=== PATIENT | female | born 1950 | race Caucasian/White ===

== ENCOUNTER 2018-08-25 17:52 | Emergency (ER) | payer BC ==
[2018-08-25 18:06] VITALS: BP 160/94
[2018-08-25] MEDS ORDERED: traMADol TAB* 50 MG PO ONE (18:15)
--- NOTE | 2018-08-25 18:15 | UC ---
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 and landed on her right hip pain in hip and pelvis unable to WB - History of Current Complaint Chief Complaint: UCLowerExtremity Stated Complaint: HIP AND LEG INJURY Time Seen by Provider: 08/25/18 18:08 Hx Obtained From: Patient ?: No Onset/Duration: Sudden Onset, Lasting Minutes Pain Intensity: 9 Pain Scale Used: 0-10 Numeric Aggravating Factor(s): Standing, Ambulation Alleviating Factor(s): Nothing Able to Bear Weight: No - Allergies/Home Medications Allergies/Adverse Reactions: Allergies Allergy/AdvReac Type Severity Reaction Status Date / Time MS Codeine [Codeine] Allergy Severe Hallucinati Verified 08/25/18 18:03 ons MS Latex [Latex] Allergy Severe SKIN Verified 08/25/18 18:03 REACTION MS Penicillins [Penicillins] Allergy Severe Hives Verified 08/25/18 18:03 OTC ALLERGY NASAL SPRAY Allergy Severe RED, Uncoded 08/25/18 18:03 ITCHING, HIVES PMH/Surg Hx/FS Hx/Imm Hx Previously Healthy: No Cardiovascular History: Hypertension - Surgical History Surgical History: Yes Surgery Procedure, Year, and Place: 2004 CARDIAC STENT(CYPHER DRUG ELUDING STENT -OK TO 720G/CM)INFORMATION SCANNED INTO EMR, PARTIAL THYROIDECTOMY, RIGHT LEG SURGERY FOR OPEN FX, D&C, LASER SURGERY FOR 3 HERNIATED DISCS IN NECK - Family History Known Family History: Positive: Hypertension - Social History Occupation: Retired Lives: With Family Alcohol Use: Daily Alcohol Amount: "cocktails" Substance Use Type: None Smoking Status (MU): Never Smoked Tobacco Have You Smoked in the Last Year: No Review of Systems All Other Systems Reviewed And Are Negative: Yes Constitutional: Positive: Negative Skin: Positive: Negative Eyes: Positive: Negative ENT: Positive: Negative Respiratory: Positive: Negative Cardiovascular: Positive: Negative Gastrointestinal: Positive: Negative Genitourinary: Positive: Negative Motor: Positive: Decreased ROM - right hip Neurovascular: Positive: Negative Musculoskeletal: Positive: Arthralgia - right hip, Decreased ROM - right hip Neurological: Positive: Negative Psychological: Positive: Negative Is Patient Immunocompromised?: No Physical Exam Triage Information Reviewed: Yes Appearance: Well-Appearing, Well-Nourished, Pain Distress Vital Signs: Initial Vital Signs Temp 99.1 F 08/25/18 18:04 Pulse 100 08/25/18 18:04 Resp 16 08/25/18 18:04 BP 160/94 08/25/18 18:04 Pulse Ox 98 08/25/18 18:04 Vital Signs Reviewed: Yes Eye Exam: Normal Eyes: Positive: Conjunctiva Clear ENT Exam: Normal ENT: Positive: Normal ENT inspection, Hearing grossly normal, Pharynx normal. Negative: Trismus, Muffled voice, Hoarse voice Dental Exam: Normal Neck exam: Normal Neck: Positive: Supple, Nontender Respiratory Exam: Normal Respiratory: Positive: Chest non-tender, Lungs clear, Normal breath sounds, No respiratory distress, No accessory muscle use Cardiovascular Exam: Normal Cardiovascular: Positive: RRR, No Murmur, Pulses Normal, Brisk Capillary Refill Musculoskeletal Exam: Other Musculoskeletal: Positive: No Edema, Strength Limited @ - right hip, ROM Limited @ - right hip Neurological Exam: Normal Neurological: Positive: Alert, Muscle Tone Normal Psychological Exam: Normal Skin Exam: Normal Diagnostics - Radiology No standard instances Radiology Interpretation Completed By: ED Physician - right femeral neck fx Lower Extremity Course/Dx - Course Course Of Treatment: ivf zofran morphine to ed for definitive care by ambulance - Differential Dx/Diagnosis Provider Diagnosis: Fracture of right hip - Physician Notifications Time Discussed With Above Provider: 18:55 - Marcellus LUND Discharge - Sign-Out/Discharge Documenting (check all that apply): Post-Discharge Follow Up All imaging exams completed and their final reports reviewed: No - Discharge Plan Condition: Good Disposition: TRANS HIGHER LVL OF CARE FAC Referrals: Avani Garcia MD [Primary Care Provider] - - Billing Disposition and Condition Condition: GOOD Disposition: Trans Higher Lvl of Care Fac
[2018-08-25] MEDS ORDERED: Ondansetron ODT TAB* 4 MG PO ONE (18:25)
[2018-08-25] MEDS ORDERED: Ondansetron INJ* 2 MG/ML VIAL IV ONE (18:46)
[2018-08-25] MEDS ORDERED: Morphine 4 MG/ML VIAL (1 ml) 4 MG/ML VIAL IV ONE (18:46)
[2018-08-25] MEDS ORDERED: NS 0.9% 1000 ML** 1,000 ML IV ONE (18:47)
[2018-08-25] MEDS ORDERED: Morphine 10 MG/ML VIAL (1 ml) IV ONE ×2 (18:49→18:50)
--- NOTE | 2018-08-26 19:31 | UC ---
- Progress Note Progress Note: RADIOLOGY REPORT REVIEWED. CONFIRMS RIGHT FEMORAL NECK FRACTURE. PT SENT TO ER. NO CHANGE IN MGMT. Course/Dx - Diagnoses Provider Diagnoses: Fracture of right hip - Provider Notifications Time Discussed With Above Provider: 18:55 - Marcellus LUND Discharge - Sign-Out/Discharge Documenting (check all that apply): Post-Discharge Follow Up All imaging exams completed and their final reports reviewed: Yes - Discharge Plan Condition: Good Disposition: TRANS HIGHER LVL OF CARE FAC Referrals: Avani Garcia MD [Primary Care Provider] - - Billing Disposition and Condition Condition: GOOD Disposition: Trans Higher Lvl of Care Fac
== END 2018-08-25 19:10 | disposition short-term general hospital (02) ==
LOC: UCEAST 17:52
DX: S72.001A Fracture of unspecified part of neck of right femur, initial encounter for closed fracture (principal); W19.XXXA Unspecified fall, initial encounter; Y92.9 Unspecified place or not applicable; X50.1XXA Overexertion from prolonged static or awkward postures, initial encounter; I10 Essential (primary) hypertension
CPT/HCPCS: 96374; 96375; 99213; A9270-GY; G0463; J2270; J2405

== ENCOUNTER 2018-08-25 19:27 | Inpatient (IN) | payer BC, MEDICARE ==
[2018-08-25] MEDS ORDERED: Bupivacaine 0.5% W/EPI SDV* 10 ML VIAL INJ ONE (19:33)
[2018-08-25] MEDS ORDERED: Lidocaine 2% EPI 1:200000 MPF* 10 ML VIAL INJ ONE (19:33)
--- NOTE | 2018-08-25 19:42 | ED ---
Lower Extremity - HPI Summary HPI Summary: This patient is a 68 year old F brought to ED via EMS from [facility] where they took a right hip XR which revealed a right femoral neck fracture after cleaning her car today at 1515. She slipped and fell on right hip from standing position. She could not get up and was helped up by her . Patient tried ice and Aleve, without improvement. She is unable to bear weight. She does not take blood thinners. The patient rates the pain 8/10 in severity. Symptoms aggravated by nothing. Symptoms alleviated by nothing. Patient reports right hip pain and right elbow abrasion. Patient denies CP, SOB, JOY. PMHx of angina, stent, broken wrist, broken collar bone. PSHx knee replacement, cardiac stent. FHx of HTN. Patient drinks alcohol, does not use tobacco or substances. - History of Current Complaint Stated Complaint: HIP/LEG INJURY, FROM CC PER EMS Time Seen by Provider: 08/25/18 19:33 Hx Obtained From: Patient Mechanism Of Injury: Fall From A Standing Position Onset of Pain: Post Accident Onset/Duration: Hours - Since 1515 today Severity Initially: Severe Severity Currently: Severe Pain Intensity: 8 Pain Scale Used: 0-10 Numeric Timing: Constant Location: Is Discrete @ - Right hip Associated Signs And Symptoms: Positive: Negative Aggravating Factor(s): Nothing Alleviating Factor(s): Nothing Able to Bear Weight: No - Allergies/Home Medications Allergies/Adverse Reactions: Allergies Allergy/AdvReac Type Severity Reaction Status Date / Time Latex, Natural Rubber Allergy Severe Skin Verified 08/25/18 18:55 Reaction Penicillins Allergy Severe Hives Verified 08/25/18 18:55 codeine AdvReac Severe Hallucinati Verified 08/25/18 20:41 ons OTC ALLERGY NASAL SPRAY Allergy Severe RED, Uncoded 08/25/18 18:03 ITCHING, HIVES Home Medications: Home Medications Meloxicam [Mobic] 15 mg PO DAILY PRN 08/25/18 [History Confirmed 08/25/18] PMH/Surg Hx/FS Hx/Imm Hx Endocrine/Hematology History: Denies: Hx Diabetes, Hx Thyroid Disease Cardiovascular History: Reports: Hx Angina, Hx Coronary Artery Disease, Hx Hypercholesterolemia, Hx Hypertension - ON MEDS, Hx Valvular Heart Disease Denies: Hx Myocardial Infarction, Hx Pacemaker/ICD Respiratory History: Denies: Hx Asthma, Hx Chronic Obstructive Pulmonary Disease (COPD) GI History: Denies: Hx Ulcer Musculoskeletal History: Denies: Hx Rheumatoid Arthritis, Hx Osteoporosis Sensory History: Denies: Hx Hearing Aid Neurological History: Denies: Other Neuro Impairments/Disorders - PAIN CLINIC PT Psychiatric History: Denies: Hx Panic Disorder - Cancer History Hx Chemotherapy: No Hx Radiation Therapy: No - Surgical History Surgery Procedure, Year, and Place: 2004 CARDIAC STENT(CYPHER DRUG ELUDING STENT -OK TO 720G/CM)INFORMATION SCANNED INTO EMR, PARTIAL THYROIDECTOMY, RIGHT LEG SURGERY FOR OPEN FX, D&C, LASER SURGERY FOR 3 HERNIATED DISCS IN NECK Infectious Disease History: Denies: Hx Clostridium Difficile, Hx Hepatitis, Hx Human Immunodeficiency Virus (HIV), Hx of Known/Suspected MRSA, Hx Shingles, Hx Tuberculosis, Hx Known/ Suspected VRE, Hx Known/Suspected VRSA, History Other Infectious Disease - Family History Known Family History: Positive: Hypertension - Social History Alcohol Use: Daily Alcohol Amount: "cocktails" Hx Substance Use: No Substance Use Type: Reports: None Hx Tobacco Use: No Smoking Status (MU): Never Smoked Tobacco Have You Smoked in the Last Year: No Review of Systems Negative: Chest Pain Negative: Shortness Of Breath Positive: Arthralgia - Right hip pain Positive: Bruising - Right elbow Negative: Headache All Other Systems Reviewed And Are Negative: Yes Physical Exam - Summary Physical Exam Summary: Appearance:Well-appearing, Well-nourished, lying in bed comfortable Skin:Warm, dry, no obvious rash Eyes:sclera anicteric, no conjunctival pallor ENT:mucous membranes moist Neck:deferred Respiratory:No signs of respiratory distress Cardiovascular:Appears well perfused, pulses are nml Abdomen:deferred Musculoskeletal:pain with motion in right hip, no shortening Neurological:Awakeand alert, mentation is normal, speech is fluent and appropriate Psychiatric:affect is normal, does not appear anxious or depressed Triage Information Reviewed: Yes Vital Signs On Initial Exam: Initial Vitals Temp Pulse Resp BP Pulse Ox 100 F 104 20 166/85 96 08/25/18 19:34 08/25/18 19:34 08/25/18 19:34 08/25/18 19:34 08/25/18 19:34 Vital Signs Reviewed: Yes Procedures - Ultrasound No standard instances Ultrasound: normal - At 1950 performed fascia iliaca block, injected 50/50 mix of 30cc of 0.5% bupivacaine and 2% lidocaine with epinephrine, under US guidance into fascia iliaca. Diagnostics - Laboratory Result Diagrams: 08/26/18 05:54 08/26/18 05:54 Lab Statement: Any lab studies that have been ordered have been reviewed, and results considered in the medical decision making process. - EKG 2017 Cardiac Rate: NL - 99 BPM EKG Rhythm: Sinus Rhythm ST Segment: Normal Summary of EKG Findings: NSR at 99 BPM, P waves, QRS complex, and T waves are within normal limits, T waves and intervals are normal, no ischemic changes. This is a normal EKG. Re-Evaluation - Re-Evaluation First Eval Re-Evaluation Time: 21:12 Comment: Discussed results with patient. [place] [facility] [place] of right hip subcapital fracture. Patient understands and agrees with this plan. Lower Extremity Course/Dx - Course Course Of Treatment: This patient is a 68 year old F brought to ED via EMS from [facility] where they took a right hip XR which revealed a right femoral neck fracture after cleaning her car today at 1515. At 1950 performed fascia iliaca block, injected 50/50 mix of 30cc of 0.5% bupivacaine and 2% lidocaine with epinephrine, under US guidance into fascia iliaca. In the ED course, patient received Tylenol, Maalox Plus, Marcaine with Epi, Cardizem CD, Lidocaine, fluids , morphine, and Percocet. Blood work and obtained. EKG revealed NSR at 99 BPM, P waves, QRS complex, and T waves are within normal limits, T waves and intervals are normal, no ischemic changes. This is a normal EKG. I consulted with Dr. Au, orthopedic surgeon, who recommended the [place] be [place] [facility] I consulted with Dr. Calabrese who accepted the patient [place] [facility] Patient will be admitted with dx of right-side subcapital hip fracture. Patient understands and agrees with this plan. - Diagnoses Provider Diagnoses: Subcapital fracture of right hip - Physician Notifications Discussed Care Of Patient With: Rosa Au Time Discussed With Above Provider: 20:16 Instructed by Provider To: Other - Discussed patient case with Dr. Au, orthopedic surgeon, who recommended the patient be admitted. Discussed patient case with Dr. Calabrese at 2019 who accepted the patient for admission [place] [facility] Discharge - Sign-Out/Discharge Documenting (check all that apply): Patient Departure Patient Received Moderate/Deep Sedation with Procedure: No - Discharge Plan Condition: Stable Disposition: ADMITTED TO [facility] - Billing Disposition and Condition Condition: STABLE Disposition: Admitted to [facility] - Attestation Statements Document Initiated by Johnna: Yes Documenting Scribe: Shoaib Moseley Provider For Whom Johnna is Documenting (Include Credential): Jackson Carrera MD Scribe Attestation: IShoaib, scribed for Jackson Carrera MD on 08/27/18 at 0118. Scribe Documentation Reviewed: Yes Provider Attestation: The documentation as recorded by the Shoaib torrez accurately reflects the service I personally performed and the decisions made by me, Jackson Carrera MD Status of Scribe Document: Viewed
[2018-08-25] MEDS ORDERED: NS 0.9% 1000 ML** 1,000 ML IV ONE (20:10)
[2018-08-25] MEDS: Morphine 4 MG/ML VIAL (1 ml) 4 MG/ML VIAL IV PRN ×2 (20:45→22:36)
[2018-08-25 20:51] LABS: ABS Basophils 0.1 10^3/ul (0-0.2); ABS Eosinophils 0.1 10^3/ul (0-0.6); ABS Lymphocytes 1.3 10^3/ul (1.0-4.8); ABS Monocytes 0.6 10^3/ul (0-0.8); ABS Neutrophils 7.9 10^3/ul (1.5-7.7); Eosinophil % 0.6 %; Hematocrit 38 % (35-47); Hemoglobin 12.8 g/dL (12.0-16.0); Lymphocyte % 12.8 %; Mean Corpuscular HGB Conc 33 g/dL (31-36); Mean Corpuscular Hemoglobin 31 pg (27-31); Mean Corpuscular Volume 93 fL (80-97); Mean Platelet Volume 7.4 fL (7.4-10.4); Platelet Count 303 10^3/uL (150-450); Red Blood Count 4.12 10^6 /uL (3.70-4.87); Red Cell Distribution Width 15 % (10.5-15); White Blood Count 9.9 10^3/uL (3.5-10.8)
[2018-08-25 20:58] LABS: INR 1.03 (0.82-1.09)
[2018-08-25] MEDS ORDERED: Morphine 4 MG/ML VIAL (1 ml) 4 MG/ML VIAL IV SCH (21:00)
[2018-08-25 21:08] LABS: Albumin 4.4 g/dL (3.2-5.2); BUN/Creatinine Ratio 33.3 (8-20); Calcium 9.1 mg/dL (8.6-10.3); EGFR African American 136.3 (>60); EGFR Non-African American 112.6 (>60); Globulin 2.2 g/dL (2-4); Potassium 3.9 mmol/L (3.5-5.0); Total Bilirubin 0.6 mg/dL (0.2-1.0); Total Protein 6.6 g/dL (6.4-8.9)
[2018-08-25] MEDS ORDERED: Al Hydrox/Mg Hydrox/Simet LIQ* 30 ML UDC PO PRN (21:34)
[2018-08-25] MEDS ORDERED: NS 0.9% 1000 ML** 1,000 ML IV SCH (21:45)
[2018-08-25] MEDS ORDERED: Heparin VIAL(*) 5000 UNITS/ML VIAL (FIVE THOUSAND) SUBCUT SCH (22:00)
[2018-08-25] MEDS ORDERED: Buffered Lidocaine 1% SYRIN* 1 ML/SYRINGE INTRADERM ONE (22:14)
--- NOTE | 2018-08-25 23:04 | CONS ---
CC: Rosa Au MD * CONSULTATION NOTE: DATE OF CONSULTATION: 08/25/18 CHIEF COMPLAINT: Right hip pain. HISTORY OF PRESENT ILLNESS: Stefania is a 68-year-old woman who was cleaning out her car. She fell when she slipped and landed on her right hip. She went to the [facility], had some x-rays, then was brought to the emergency department because she was noted to have a hip fracture. X-rays show a displaced femoral neck fracture. PAST MEDICAL HISTORY: Significant for cardiac disease with a stent placed in 2004 and hypertension. She sees Dr. Saunders every 6 months. She was due to see him in a few days. PHYSICAL EXAM: On physical exam, she is a healthy appearing, very pleasant woman in moderate distress at rest. She has pain with any attempted range of motion of her right hip. She has a palpable posterior tibialis pulse. Her foot is well perfused. Her calf is nontender. Her neurovascular function is intact in the right lower extremity. IMAGING: X-ray: AP, lateral of the right hip and AP pelvis show a displaced fracture of the femoral neck. IMPRESSION: Right hip displaced femoral neck fracture. PLAN: Plan is for a hemiarthroplasty. The patient will be admitted to the hospitalist service and have surgery as soon as possible. [id number]/[facility] #: [id number] [facility]
[2018-08-25] MEDS: oxyCODONE/Acetamin 5/325 MG* TAB PO PRN (23:48)
--- NOTE | 2018-08-26 00:59 | HP ---
CC: Dr. Au; Dr. Saunders; Dr. Garcia * HISTORY AND PHYSICAL: DATE OF ADMISSION: 08/25/18 PRIMARY CARE PROVIDER: Dr. Garcia. POWDER EXPERT: Dr. Saunders. ORTHOPEDIC SURGERY: Dr. Au. CHIEF COMPLAINT: Status post fall, right hip pain. HISTORY OF PRESENT ILLNESS: Stefania Gonzalez is a 68-year-old female with history of hypertension and carotid disease, status post stenting in 2004, who presented to the hospital after a fall today. The patient stated that she was vacuuming the interior of her car and she was in the back of the car, reaching down for her vacuum strainer cleaner when she slipped out of her shoes that she was wearing, falling on the right side of her hip and the right elbow. She denies losing consciousness. She had been in her usual state of health before it happened. When she presented to the ED, she was noted to have right hip fracture. Dr. Carrera from the emergency department notified Dr. Au, the orthopedic surgeon, and Medicine is going to admit. Of note, the patient stated that when she had her surgery for her right knee at [facility] in [facility] in March 2018, she underwent extensive cardiac evaluation that included a cardiac stress test, which was as per the patient negative and subsequently she underwent right knee surgery. PAST MEDICAL HISTORY: 1. History of carotid disease, status post stent placement x1 in 2004. 2. History of hypertension. 3. History of dyslipidemia. 4. History of minimally invasive lower back surgery in October 2016. 5. History of right knee surgery on 04/16/18 at [facility] in [facility]. 6. History of left wrist ORIF in the past. 7. History of collarbone clavicular fracture on the right in the past. CURRENT MEDICATIONS: 1. Meloxicam 50 mg daily p.r.n. 2. Lipitor 40 mg a day. 3. Nitroglycerin on a p.r.n. basis. 4. Avapro 150 mg daily. 5. Diltiazem CD 360 mg daily. 6. Vitamin D3 at 1000 units daily. ALLERGIES: Include LATEX, NATURAL RUBBER, PENICILLIN, and CODEINE. FAMILY HISTORY: Positive for father who of complications of lung cancer in his 80s and mother who of complications of CHF in her 70s. 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 She drinks 2 to 3 glasses of wine a day. Denies any tobacco use or drug use. Her surrogate is her , Fransico. REVIEW OF SYSTEMS: Please see history of present illness. All the remaining 12 systems reviewed with the patient and were, otherwise, negative. PHYSICAL EXAMINATION GENERAL: The patient is a pleasant 68-year-old female who is in no acute distress. Alert, awake, and oriented x3. VITAL SIGNS: Blood pressure of 166/85, heart rate of 104 and regular, respiratory rate 20, oxygen saturation 96% on room air, temperature of 100. HEENT: Head: Atraumatic, normocephalic. Eyes: Pupils are equal, reactive to light and accommodation. Oropharynx clear. Mucosa moist. NECK: Supple. No JVD. No bruits bilaterally. RESPIRATORY: Clear to auscultation bilaterally. CARDIOVASCULAR: Regular rate and rhythm. No murmur. ABDOMEN: Soft, nontender. Bowel sounds are present in all 4 quadrants. EXTREMITIES: There is no edema. Pulses are 2+ bilaterally. There is no clubbing or cyanosis. The right hip is externally rotated and the extremity appears slightly shortened. SKIN: On evaluation of the skin, the patient has an abrasion and small ecchymotic area on the right elbow. No other abnormalities noted. NEURO EVALUATION: Cranial nerves II through XII grossly intact. Motor strength is 5/5 bilaterally. EXTREMITIES: The right hip mobility was not evaluated due to known fracture. DIAGNOSTIC STUDIES/LAB DATA: Laboratory data and studies performed during the hospital stay include: White blood cell count of 9.9, hemoglobin 12.8, hematocrit of 38, and platelets of 303. Sodium was 138, potassium 3.9, chloride 108, carbon dioxide 23, BUN 18, creatinine 0.54. Liver functions unremarkable. Troponin of 0. INR was 1.03. The patient's EKG showed normal sinus tachycardia with heart rate of 99 beats per minute with nonspecific ST changes in leads V4 and V6 and flattening of T waves in both leads. Comparing with an EKG from June 2017, nonspecific new changes were noted. I just accessed the cardiac evaluation of this patient from 04/04/18 from [facility] of Dr. Jaylen Girard, floor runner, who noted that the patient had an echocardiogram at that time of evaluation without regional wall motion abnormalities or LVH and positive for abnormal LV relaxation and no significant valve dysfunction. I do not see a stress test during this valuation, but she was noted to have a nuclear stress test in September 2016, which showed no fixed or reversible perfusion defects, normal wall motion, and EF of 67% at that point. The patient's right hip's x-ray was read by the ER physician as positive for fracture. Unfortunately, I do not have an official report yet available. I was trying to view that x-ray myself and the quality is very poor. It is difficult for me to evaluate this hip x-ray. ASSESSMENT AND PLAN: 1. A 68-year-old female with history of hypertension and coronary artery disease who recently was cleared for an arthroscopic knee surgery in March 2018 and who presents today status post mechanical fall with a right hip fracture. At this point, due to her recent cardiac evaluation in March 2018 with recent echocardiogram that was unremarkable, I do not believe she needs another cardiac evaluation and another echocardiogram. Her troponin is negative. She has not had any chest pain or shortness of breath for the past several years and she has good exercise tolerance. She is an acceptable candidate for the anticipated procedure in the morning. 2. In regards to the patient's hypertension, her irbesartan should be stopped for the time being and she can take her Cardizem with sips of water. She should continue aspirin perioperatively. 3. For DVT prophylaxis, the patient is going to receive a dose of heparin tonight, then it is going to be held, and SCDs are going to be instituted. Postoperatively, DVT prophylaxis is going to be up to orthopedic surgery. 4. The patient's code status is full and her surrogate is her . The case was also discussed with Dr. Au, who is going to be evaluating this patient today. TIME SPENT: Approximately 75 minutes were spent in the admission of this patient; more than half the time was spent [id number] with the patient during the interview and physical exam. [id number]/[facility] #: [id number] JAYDEN
[2018-08-26] MEDS: Morphine INJ* 2 MG/ML 1 ML SYRINGE (TWO MG - NEW SYRINGE VERSION) IV PRN ×4 (02:20→14:44)
[2018-08-26] MEDS: oxyCODONE/Acetamin 5/325 MG* TAB PO PRN ×4 (04:32→22:22)
[2018-08-26] MEDS: Lactated Ringers 1000 ML Bag* 1,000 ML IV SCH ×2 (05:55→21:26)
[2018-08-26 06:06] LABS: ABS Eosinophils 0.1 10^3/ul (0-0.6); ABS Monocytes 0.4 10^3/ul (0-0.8); ABS Neutrophils 4.4 10^3/ul (1.5-7.7); Eosinophil % 1.3 %; Hematocrit 34 % (35-47); Hemoglobin 11.3 g/dL (12.0-16.0); Lymphocyte % 17.3 %; Mean Corpuscular HGB Conc 34 g/dL (31-36); Mean Corpuscular Hemoglobin 31 pg (27-31); Mean Corpuscular Volume 94 fL (80-97); Mean Platelet Volume 7.3 fL (7.4-10.4); Platelet Count 264 10^3/uL (150-450); Red Blood Count 3.62 10^6 /uL (3.70-4.87); Red Cell Distribution Width 15 % (10.5-15)
[2018-08-26 06:22] LABS: BUN/Creatinine Ratio 30.2 (8-20); Calcium 8.6 mg/dL (8.6-10.3); EGFR African American 177.2 (>60); EGFR Non-African American 146.5 (>60); Potassium 4.1 mmol/L (3.5-5.0)
[2018-08-26] MEDS ORDERED: Lidocaine 2% MPF* 2 ML VIAL ONE (08:11)
[2018-08-26] MEDS ORDERED: Bupivacaine 0.5% SDV PF* 30ML VIAL ONE (08:11)
[2018-08-26] MEDS: Diltiazem CD CAP* 180 MG PO SCH (08:27)
[2018-08-26] MEDS ORDERED: Buffered Lidocaine 1% SYRIN* 1 ML/SYRINGE INTRADERM ONE (08:39)
[2018-08-26] MEDS ORDERED: fentaNYL* 50 MCG/ML 2 ML VIAL (100 MCG VIAL) ONE (09:11)
[2018-08-26] MEDS ORDERED: KETAMINE HCL* 50 MG/ML 10 ML VIAL ONE ×2 (09:11→16:25)
[2018-08-26] MEDS ORDERED: Lidocaine 2% PF * 5 ML VIAL ONE ×2 (09:11→16:25)
[2018-08-26] MEDS ORDERED: Midazolam* 1 MG/ML 2 ML VIAL (2 MG) ONE (09:11)
[2018-08-26] MEDS ORDERED: Propofol* 10 MG/ML 20 ML BTL ONE ×2 (09:12→16:25)
[2018-08-26] MEDS ORDERED: Propofol* 10 MG/ML 50 ML BTL ONE ×2 (09:12→16:25)
--- NOTE | 2018-08-26 10:04 | PN ---
Progress Note - Progress Note Date of Service: 08/26/18
--- NOTE | 2018-08-26 10:15 | PN ---
Progress Note - Progress Note Date of Service: 08/26/18 SOAP: Subjective: Patient fell yesterday around 3pm. See Dr. Au consult note for details. Patient is in pain about the R groin and lateral hip area. Also mentions some pain in the right knee. Prior history R TKA Objective: - NAD - Pain with any PROM R hip - Soft tissue swelling R hip - R knee incision scar anterior from TKA - R knee effusion - NVID Selected Entries 08/26/18 07:32 Temperature 97.7 F Pulse Rate 73 Respiratory 18 Rate Blood Pressure 124/62 (mmHg) O2 Sat by Pulse 98 Oximetry Laboratory Tests 08/25/18 08/25/18 08/26/18 20:43 20:43 05:54 WBC 6.0 Hct 38 34 L INR (Anticoag Therapy) 1.03 Xrays: displaced R femoral neck fracture Assessment: HD 2 R hip displaced femoral neck fracture Plan: - Discussed hip fracture anatomy and treatment with the patient and her - Patient was originally scheduled for hip hemiarthroplasty by me this morning - While hemiarthroplasty would be an appropriate surgical treatment for this hip fracture, I think that, given the patient's relatively young age, high activity level, and lack of prior assist device usage, she is more appropriate for a total hip arthroplasty. - I therefore contacted a partner who is higher volume of total hip arthroplasty , Dr. Pryor. She will do the case at 5pm this afternoon. - NPO continue - Patient has been optimized/cleared by medicine, Dr. Calabrese - Patient should have knee x-rays obtained at some point. To minimize discomfort , we can hold off until postop along with hip xrays in PACU
--- NOTE | 2018-08-26 14:46 | PN ---
Subjective Date of Service: 08/26/18 Interval History: Patient seen and examined. Mildly delirious after having morphine for pain, but otherwise appropriate. States pain is well controlled, denies SOB, no chest pain , no n/v. Remains NPO for procedure this evening. Objective Active Medications: Acetaminophen (Tylenol Tab*) 650 mg PO Q4H PRN PRN Reason: FEVER/PAIN Al Hydrox/Mg Hydrox/Simethicone (Maalox Plus*) 30 ml PO Q6H PRN PRN Reason: INDIGESTION Aspirin (Aspirin 81 Mg Chew Tab*) 81 mg PO DAILY [facility] Diltiazem HCl (Cardizem Cd Cap*) 360 mg PO DAILY [facility] Last Admin: 08/26/18 08:27 Dose: 360 mg Lactated Ringer's (Lactated Ringers 1000 Ml Bag*) 1,000 mls @ 125 mls/hr IV PER RATE [facility] Last Admin: 08/26/18 05:55 Dose: 125 mls/hr Morphine Sulfate (Morphine Inj (Syringe))*) 2 mg IV Q4H PRN PRN Reason: PAIN - MILD Last Admin: 08/26/18 10:21 Dose: 2 mg Oxycodone/Acetaminophen (Percocet 5/325 Tab*) 1 tab PO Q4H PRN PRN Reason: Pain Last Admin: 08/26/18 12:38 Dose: 1 tab Vital Signs - 8 hr 08/26/18 08/26/18 08/26/18 07:32 08:00 08:27 Temperature 97.7 F Pulse Rate 73 Respiratory 18 18 18 Rate Blood Pressure 124/62 (mmHg) O2 Sat by Pulse 98 Oximetry 08/26/18 08/26/18 08/26/18 10:21 11:40 12:38 Temperature 98.8 F Pulse Rate 80 Respiratory 18 16 18 Rate Blood Pressure 128/64 (mmHg) O2 Sat by Pulse 95 Oximetry Oxygen Devices in Use Now: None Appearance: Alert, NAD Eyes: No Scleral Icterus, PERRLA Ears/Nose/Mouth/Throat: NL Teeth, Lips, Gums, Mucous Membranes Moist Neck: NL Appearance and Movements; NL JVP, Trachea Midline Respiratory: Symmetrical Chest Expansion and Respiratory Effort, Clear to Auscultation Cardiovascular: RRR, No Edema Abdominal: NL Sounds; No Tenderness; No Distention Extremities: No Edema, No Clubbing, Cyanosis, - - tender over right hip Neurological: NL Sensation, - - A&Ox2 Nutrition: - - NPO Result Diagrams: 08/26/18 05:54 08/26/18 05:54 Diagnostic Imaging: Patient Name: TEODORA RIVERA Medical Record#: [id number] Ordering Physician: Jackson Carrera MD Acct.#: [id number] : 1950 Age: 68 Sex: F Location: SURGICAL STAY UNIT Exam Date: 08/25/182132 ADM Status: ADM IN Order Information: HIP RIGHT 1 VW Accession Number: [id number] CPT: 35638 INDICATION: Suspected right hip fracture. A lateral view is required. COMPARISON: Same day radiograph acquired at 1836 hours depicting a right femoral neck fracture TECHNIQUE: A total of 6 lateral views of the right hip were obtained. FINDINGS: The radiographic images acquired at 2200 hours demonstrate a minimally displaced right femoral neck fracture in the lateral view. IMPRESSION: Minimally displaced fractured right femoral neck. R1F Preliminary Imaging Read R1F <Electronically signed by Gonzalo Adams MD in OV> 08/26/18934 Dictated By: Gonzalo Adams MD Dictated Date/Time: 08/26/18934 Transcribed Date/Time: 08/26/18932 Copy to: Assess/Plan/Problems-Billing Assessment: This is a 68 year old female with history of CAD and HTN that presented to the ED with complaints of right hip pain after mechanical fall, admitted for right hip fracture. - Patient Problems (1) Displaced fracture of right femoral neck Code(s): S72.001A - FRACTURE OF UNSP PART OF NECK OF RIGHT FEMUR, INIT SNOMED Code(s): 2943753 Comment: - Original plan for hemiarthroplasty, however, surgery was cancelled. Dr. Pryor will come in this evening to perform a right total hip arthroplasty instead - Continue pain control, watch for delerium - Bowel regimen, DVT prophy per ortho - Plan per ortho (2) CAD (coronary artery disease) Code(s): I25.10 - ATHSCL HEART DISEASE OF [place] CORONARY ARTERY W/O ANG PCTRS SNOMED Code(s): 84686792 Comment: - History of CAD with stents - Recents ECHO and EKG with no changes - Continue home statin, ASA (3) Hypertension Code(s): I10 - ESSENTIAL (PRIMARY) HYPERTENSION SNOMED Code(s): 27904071 Comment: - Continue cardizem, BP stable Status and Disposition: Inpatient. Surgery tonight.
[2018-08-26] MEDS ORDERED: Scopolamine 1.5 mg* PATCH ONE (16:25)
[2018-08-26] MEDS ORDERED: Clindamycin 900 MG IVPREMIX(* 900 MG/50 ML SDV IV ONE (16:53)
[2018-08-26] MEDS ORDERED: Dexamethasone IV* 4 MG/ML 1 ML (4 MG) ONE (17:41)
[2018-08-26] MEDS ORDERED: Bupivacaine 0.25% SDV PF* 10 ML VIAL INJ ONE (18:38)
[2018-08-26] MEDS ORDERED: HYDROmorphone INJ1* 1 MG/ML SYRINGE IV PRN (18:41)
[2018-08-26] MEDS ORDERED: Ondansetron INJ* 2 MG/ML VIAL IV PRN (18:41)
[2018-08-26] MEDS ORDERED: Naloxone* 0.4 MG/ML 1 ML VIAL IV PRN (18:41)
[2018-08-26] MEDS ORDERED: Ketorolac INJ* 30 MG/ML 1 ML VIAL IV PRN (18:41)
[2018-08-26] MEDS ORDERED: oxyCODONE TAB* 5 MG TAB PO PRN (18:41)
[2018-08-26] MEDS ORDERED: Acetaminophen IV 1GM/100ML * 1,000 MG/100 ML VIAL IVPB ONE (18:41)
--- NOTE | 2018-08-26 19:01 | PN ---
Progress Note - Progress Note Date of Service: 08/26/18 SOAP: TEODORA RIVERA 1950 Date Of Surgery: 08/26/18 Fatemeh Keller MD Assurance Senior Manager Insurance: Adenike LUND did help throughout the procedure with preparation of the hip, wound retraction, manipulation of the hip, and wound closure. Anesthesiologist: Jada Malave MD Anesthesia Type: Spinal Preoperative Diagnosis: Right displaced femoral neck fracture Postoperative Diagnosis: As above Procedure Performed: Right Total Hip Arthroplasty Complications: None Specimen: Femoral head and acetabular reamings sent to pathology. Hardware used: This is uncemented [place] total hip arthroplasty hardware for the femur a size 4 accolade II with 127 degree neck femoral component, for the acetabulum a size 50 D trident II tritanium cluster hole shell with one 15 mm screw, for the insert a size 38 D MDM cementless liner insert, and for the femoral head a size 22.2 + 0 LFIT V40 femoral head with a MDM X 3 insert 22.2/ 38/38D. Brief history/Indication: TEODORA RIVERA had a fall on 08/25/18, fracturing her right femoral neck. The fracture was displaced and her hip joint showed significant osteoarthritis. 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 The patient was offered a total hip arthroplasty as the best orthopedic medical recommendation and did wish to proceed. Informed consent was obtained from the patient. She understood the risks of surgery included but were not limited to: bleeding, infection, damage to nearby structures, intraoperative fracture, nerve palsy, failure of the hardware, early loosening, stiffness or loss of motion, dislocation, leg length discrepancy, anesthesia complications, stroke, heart attack, blood clot and . She wished to proceed. Intra-Operative findings: Intraoperatively the patient was noted to have severe loss of cartilage of the acetabulum and femoral head. She had a comminuted displaced femoral neck fracture. She had significant osteopenia. Description of the Procedure: TEODORA RIVERA was identified in the preanesthesia unit. Her right hip was marked as the correct operative side. Informed consent was signed and placed in the chart. The patient was taken to the operating room and placed under anesthesia without complication. A giraldo catheter was placed. The patient was placed on the peg board with all bony prominences well padded. The right lower extremity was prepped and draped in the usual sterile fashion. Preoperative time -out was made to correctly identify the patient, side and site. Appropriate intraoperative antibiotics were given within one hour of incision. A standard posterior incision was made and carried sharply down to the lateral fascia. A new 10 blade was used to make an incision in the fascia in line with the skin incision. A charnley retractor was placed. The piriformis and conjoined tendons were identified and elevated off the posterolateral femur using electrocautery. These were tagged with number 5 Ethibond. Next electrocautery was used to make a posterolateral capsular flap and this was tagged with number 5 Ethibonds. The hip was carefully dislocated. The femoral neck fracture was comminuted Lesser trochanter to the center of the femoral head was estimated at 55 mm. The oscillating saw was used to make the femoral neck clean-up cut. The femoral head was carefully removed, along with any bony fragments. The femur was retracted anteriorly and the acetabular retractors were placed. Long-handled knife was used to sharply remove any remaining labrum from the acetabular rim. The acetabulum was sequentially reamed up to a size 49. A bleeding subchondral bone bed was obtained. A trial cup was placed and had excellent fit and stability. A 50 D trident II tritanium cup was placed and had excellent stability with appropriate anteversion and abduction angle. A 15 mm screw was placed for extra stability. A size 38D MDM cementless liner was impacted into the acetabular shell. The liner was checked for stability and was stable. Next attention was turned to preparation of the femoral canal. A canal finder was used to enter the proximal femur. The femoral canal was sequentially broached up to a size 4 femoral broach trial. A trial neck and 22.2+0/38D trial femoral head was chosen. Lesser trochanter to center of the femoral head measurement was satisfactory. The hip was reduced and taken through a range of motion. The hip was stable in all positions with good soft tissue tension and appropriate leg lengths. The hip was dislocated and all trials were removed. The final implant chosen was a size 4 accolade II with 127 degree neck. This stem was impacted into the femoral canal without difficulty. The stem was stable with appropriate anteversion. The femoral head chosen was a 22.2 + 0 with 22.2/38D MDM X3 insert. The head was impacted onto the femoral neck without difficulty. The final lesser trochanter to center of the femoral head measurement was satisfactory. The hip was reduced and taken through a range of motion. The hip was stable in all positions with good soft tissue tension and appropriate leg lengths. The hip was copiously irrigated with sterile saline. The previously tagged capsule and tendons were repaired to the posterolateral femur through two trochanteric drill holes. The lateral fascia layer was closed using number 1 vicryls. The rest of the incision was closed in a layered fashion using 0 and 2-0 vicryls. The skin was closed using 3-0 monocryl suture and Dermabond. Sterile adaptic, 4x4s and paper tape was used to cover the incision. The patients anesthesia was reversed without difficulty. She was taken to the PACU in stable condition. Intended weight-bearing will be as tolerated with posterior hip precautions.
[2018-08-26] MEDS ORDERED: Acetaminophen IV 1GM/100ML * 100 ML ONE (19:29)
[2018-08-26] MEDS ORDERED: Ketorolac INJ* 30 MG/ML 1 ML VIAL ONE (19:29)
[2018-08-26] MEDS ORDERED: oxyCODONE/Acetamin 5/325 MG* TAB PO PRN (23:52)
[2018-08-27] MEDS: Morphine INJ* 2 MG/ML 1 ML SYRINGE (TWO MG - NEW SYRINGE VERSION) IV PRN (00:48)
[2018-08-27] MEDS: Clindamycin 600 MG/D5W BAG(*) 600 MG/50 ML BAG IV SCH ×3 (00:49→17:27)
[2018-08-27] MEDS: oxyCODONE/Acetamin 5/325 MG* TAB PO PRN ×4 (02:40→17:28)
[2018-08-27] MEDS: oxyCODONE TAB* 5 MG TAB PO PRN ×3 (04:37→21:19)
[2018-08-27] MEDS: Lactated Ringers 1000 ML Bag* 1,000 ML IV SCH (06:05)
[2018-08-27] MEDS: Diltiazem CD CAP* 180 MG PO SCH (08:42)
[2018-08-27] MEDS: Aspirin 81 mg CHEW TAB* 81 MG TAB.CHEW PO SCH (08:43)
[2018-08-27] MEDS: Apixaban* 2.5 MG TAB PO SCH ×2 (08:43→21:20)
[2018-08-27] MEDS ORDERED: Magnesium Hydroxide LIQ* 30 ML UDC PO PRN (10:15)
[2018-08-27] MEDS ORDERED: Senna TAB PO PRN (10:15)
[2018-08-27] MEDS ORDERED: Polyethylene Glycol 3350* 17 GM PACKET PO PRN (10:15)
--- NOTE | 2018-08-27 10:18 | PN ---
Progress Note - Progress Note Date of Service: 08/27/18 SOAP: Subjective: []Patient seen and examined at bedside. She is POD 1 sp right total hip arthroplasty following a femoral neck fracture. She denies chest pain, shortness of breath, dizziness, nausea. Objective: []General: Appears well, NAD RLE: Dressing CDI, thigh soft, DF/PF intact, DP2+, sensation intact to light touch distally Calves supple and nontender without erythema, edema or palpable cords Assessment: []POD 1 sp right total hip arthroplasty following right femoral neck fracture Plan: []WBAT, posterior hip precautions. Posterior hip precautions reviewed with patient PT/OT eliquis 2.5 mg po BID Anticipate DC home tomorrow Vital Signs Temp 98 F 08/27/18 07:32 Pulse 85 08/27/18 07:32 Resp 18 08/27/18 10:40 BP 120/76 08/27/18 07:32 Pulse Ox 96 08/27/18 07:32 Intake & Output 08/26/18 08/27/18 08/27/18 18:59 06:59 18:59 Intake Total 1270 2490 1040 Output Total 202 650 Balance 1270 465 390 Weight 150 lb Intake: IV Fluids 1030 1050 CLINDAMYCIN 900MG IN 50 50MLNS LR 980 1050 Oral 240 1440 1040 Output: Urine 650 Yates 2024 Other: Estimated Void Large Laboratory Last Values WBC 6.0 10^3/uL (3.5-10.8) 08/26/18 05:54 RBC 3.62 10^6 /uL (3.70-4.87) L 08/26/18 05:54 Hgb 11.3 g/dL (12.0-16.0) L 08/26/18 05:54 Hct 34 % (35-47) L 08/26/18 05:54 MCV 94 fL (80-97) 08/26/18 05:54 MCH 31 pg (27-31) 08/26/18 05:54 MCHC 34 g/dL (31-36) 08/26/18 05:54 RDW 15 % (10.5-15) 08/26/18 05:54 Plt Count 264 10^3/uL (150-450) 08/26/18 05:54 MPV 7.3 fL (7.4-10.4) L 08/26/18 05:54 Neut % (Auto) 73.2 % 08/26/18 05:54 Lymph % (Auto) 17.3 % 08/26/18 05:54 [place] % (Auto) 7.4 % 08/26/18 05:54 Eos % (Auto) 1.3 % 08/26/18 05:54 Baso % (Auto) 0.8 % 08/26/18 05:54 Absolute Neuts (auto) 4.4 10^3/ul (1.5-7.7) 08/26/18 05:54 Absolute Lymphs (auto) 1.0 10^3/ul (1.0-4.8) 08/26/18 05:54 Absolute Monos (auto) 0.4 10^3/ul (0-0.8) 08/26/18 05:54 Absolute Eos (auto) 0.1 10^3/ul (0-0.6) 08/26/18 05:54 Absolute Basos (auto) 0.0 10^3/ul (0-0.2) 08/26/18 05:54 Absolute Nucleated RBC 0.0 10^3/ul 08/26/18 05:54 Nucleated RBC % 0.0 08/26/18 05:54 INR (Anticoag Therapy) 1.03 (0.82-1.09) 08/25/18 20:43 Sodium 135 mmol/L (135-145) 08/26/18 05:54 Potassium 4.1 mmol/L (3.5-5.0) 08/26/18 05:54 Chloride 104 mmol/L (101-111) 08/26/18 05:54 Carbon Dioxide 26 mmol/L (22-32) 08/26/18 05:54 Anion Gap 5 mmol/L (2-11) 08/26/18 05:54 BUN 13 mg/dL (6-24) 08/26/18 05:54 Creatinine 0.43 mg/dL (0.51-0.95) L 08/26/18 05:54 Est GFR ( Amer) 177.2 (>60) 08/26/18 05:54 Est GFR (Non-Af Amer) 146.5 (>60) 08/26/18 05:54 BUN/Creatinine Ratio 30.2 (8-20) H 08/26/18 05:54 Glucose 132 mg/dL (70-100) H 08/26/18 05:54 Calcium 8.6 mg/dL (8.6-10.3) 08/26/18 05:54 Total Bilirubin 0.60 mg/dL (0.2-1.0) 08/25/18 20:43 AST 18 U/L (13-39) 08/25/18 20:43 ALT 21 U/L (7-52) 08/25/18 20:43 Alkaline Phosphatase 67 U/L (34-104) 08/25/18 20:43 Troponin I 0.00 ng/mL (<0.04) 08/25/18 20:43 Total Protein 6.6 g/dL (6.4-8.9) 08/25/18 20:43 Albumin 4.4 g/dL (3.2-5.2) 08/25/18 20:43 Globulin 2.2 g/dL (2-4) 08/25/18 20:43 Albumin/Globulin Ratio 2.0 (1-3) 08/25/18 20:43 Blood Type B Positive 08/25/18 20:43 Antibody Screen Negative 08/25/18 20:43
--- NOTE | 2018-08-27 17:10 | PN ---
Subjective Date of Service: 08/27/18 Interval History: Patient seen and examined. Feeling well. States she has tenderness over the right groin, has been participating in PT. Denies SOB, no chest pain, no further complaints. Objective Active Medications: Acetaminophen (Tylenol Tab*) 650 mg PO Q4H PRN PRN Reason: FEVER/PAIN Al Hydrox/Mg Hydrox/Simethicone (Maalox Plus*) 30 ml PO Q6H PRN PRN Reason: INDIGESTION Apixaban (Eliquis*) 2.5 mg PO BID [facility] Last Admin: 08/27/18 08:43 Dose: 2.5 mg Aspirin (Aspirin 81 Mg Chew Tab*) 81 mg PO DAILY [facility] Last Admin: 08/27/18 08:43 Dose: 81 mg Diltiazem HCl (Cardizem Cd Cap*) 360 mg PO DAILY [facility] Last Admin: 08/27/18 08:42 Dose: 360 mg Docusate Sodium (Colace Cap*) 100 mg PO BID [facility] Lactated Ringer's (Lactated Ringers 1000 Ml Bag*) 1,000 mls @ 125 mls/hr IV PER RATE [facility] Last Admin: 08/27/18 06:05 Dose: 125 mls/hr Clindamycin HCl/Dextrose (Cleocin 600 Mg/50 Ml(*)) 600 mg in 50 mls @ 100 mls/ hr IV Q8H [facility] Stop: 08/27/18 17:59 Last Admin: 08/27/18 08:42 Dose: 100 mls/hr Magnesium Hydroxide (Milk Of Magnesia Liq*) 30 ml PO BID PRN PRN Reason: CONSTIPATION Morphine Sulfate (Morphine Inj (Syringe))*) 2 mg IV Q4H PRN PRN Reason: PAIN - MILD Last Admin: 08/27/18 00:48 Dose: 2 mg Oxycodone HCl (Roxycodone Tab*) 5 mg PO Q6H PRN PRN Reason: PAIN Last Admin: 08/27/18 10:40 Dose: 5 mg Oxycodone/Acetaminophen (Percocet 5/325 Tab*) 1 tab PO Q4H PRN PRN Reason: PAIN - MILD TO MODERATE Oxycodone/Acetaminophen (Percocet 5/325 Tab*) 2 tab PO Q4H PRN PRN Reason: PAIN - MODERATE TO SEVERE Last Admin: 08/27/18 13:08 Dose: 2 tab Polyethylene Glycol/Electrolytes (Miralax*) 17 gm PO DAILY PRN PRN Reason: CONSTIPATION Senna (Senokot Tab*) 1 tab PO BEDTIME PRN PRN Reason: CONSTIPATION Vital Signs - 8 hr 08/27/18 08/27/18 08/27/18 10:40 12:46 13:08 Temperature 98 F Pulse Rate 74 Respiratory 18 16 16 Rate Blood Pressure 121/62 (mmHg) O2 Sat by Pulse 97 Oximetry 08/27/18 08/27/18 15:28 16:16 Temperature 98.2 F 99.3 F Pulse Rate 64 65 Respiratory 20 20 Rate Blood Pressure 109/50 138/72 (mmHg) O2 Sat by Pulse 97 93 Oximetry Oxygen Devices in Use Now: None Appearance: alert, NAD Eyes: No Scleral Icterus, PERRLA Ears/Nose/Mouth/Throat: NL Teeth, Lips, Gums, Mucous Membranes Moist Neck: NL Appearance and Movements; NL JVP, Trachea Midline Respiratory: Symmetrical Chest Expansion and Respiratory Effort, Clear to Auscultation Cardiovascular: NL Sounds; No Murmurs; No JVD, RRR, No Edema Extremities: No Edema, No Clubbing, Cyanosis Skin: No Rash or Ulcers Neurological: Alert and Oriented x 3, NL Sensation, NL Muscle Strength and Tone Nutrition: Taking PO's Result Diagrams: 08/26/18 05:54 08/26/18 05:54 Diagnostic Imaging: Patient Name: TEODORA RIVERA Medical Record#: [id number] Ordering Physician: Jackson Carrera MD Acct.#: [id number] : 1950 Age: 68 Sex: F Location: SURGICAL STAY UNIT Exam Date: 08/25/182132 ADM Status: ADM IN Order Information: HIP RIGHT 1 VW Accession Number: [id number] CPT: 65857 INDICATION: Suspected right hip fracture. A lateral view is required. COMPARISON: Same day radiograph acquired at 1836 hours depicting a right femoral neck fracture TECHNIQUE: A total of 6 lateral views of the right hip were obtained. FINDINGS: The radiographic images acquired at 2200 hours demonstrate a minimally displaced right femoral neck fracture in the lateral view. IMPRESSION: Minimally displaced fractured right femoral neck. R1F Preliminary Imaging Read R1F <Electronically signed by Gonzalo Adams MD in OV> 08/26/18934 Dictated By: Gonzalo Adams MD Dictated Date/Time: 08/26/18934 Transcribed Date/Time: 08/26/18932 Copy to: Assess/Plan/Problems-Billing Assessment: This is a 68 year old female with history of CAD and HTN that presented to the ED with complaints of right hip pain after mechanical fall, admitted for right hip fracture. - Patient Problems (1) Displaced fracture of right femoral neck Code(s): S72.001A - FRACTURE OF UNSP PART OF NECK OF RIGHT FEMUR, INIT SNOMED Code(s): 1169585 Comment: - POD1 right total hip arthroplasty - Continue pain control, watch for delerium - Bowel regimen, DVT prophy per ortho - OOB with PT/O, hip precautions (2) CAD (coronary artery disease) Code(s): I25.10 - ATHSCL HEART DISEASE OF [place] CORONARY ARTERY W/O ANG PCTRS SNOMED Code(s): 49716394 Comment: - History of CAD with stents - Recents ECHO and EKG with no changes - Continue home statin, ASA - Stable (3) Hypertension Code(s): I10 - ESSENTIAL (PRIMARY) HYPERTENSION SNOMED Code(s): 45023136 Comment: - Continue cardizem, BP stable Status and Disposition: Inpatient. Medically stable. Will follow distantly through discharge. Dispo per ortho.
[2018-08-27] MEDS: Docusate CAP* 100 MG PO SCH (21:20)
[2018-08-28] MEDS: oxyCODONE/Acetamin 5/325 MG* TAB PO PRN (00:16)
[2018-08-28] MEDS: Acetaminophen TAB* 325 MG PO PRN ×2 (06:29→10:41)
--- NOTE | 2018-08-28 07:31 | PN ---
Progress Note - Progress Note Date of Service: 08/28/18 SOAP: Subjective: Pt. is doing well, some confusion with oxycodone last evening, alert and oriented x 3 this AM. Objective: Vital Signs: Temp Pulse Resp BP Pulse Ox 98.4 F 103 16 153/76 99 08/28/18 04:10 08/28/18 04:10 08/28/18 04:10 08/28/18 04:10 08/28/18 04:10 RLE - dressing changed, incision c/d/i. distally nvi. thigh soft. Assessment: 68 yo F pod 2 s/p RTHA after fall with displaced femoral neck fracture Plan: wbat RLE posterior hip precautions PT/OT ortho stable for d/c to home, follow up with dr seay in 10-14 days, call [phone] for appointment
[2018-08-28] MEDS ORDERED: traMADol TAB* 50 MG PO PRN (08:36)
[2018-08-28] MEDS: Diltiazem CD CAP* 180 MG PO SCH (08:43)
[2018-08-28] MEDS: Apixaban* 2.5 MG TAB PO SCH (08:43)
[2018-08-28] MEDS: Docusate CAP* 100 MG PO SCH (08:43)
[2018-08-28] MEDS: Aspirin 81 mg CHEW TAB* 81 MG TAB.CHEW PO SCH (08:44)
[2018-08-28 11:39] VITALS: BP 127/62
--- NOTE | 2018-09-06 23:56 | DS ---
CC: Dr. Avani Garcia; Dr. Dipika Pryor * DISCHARGE SUMMARY: DATE OF ADMISSION: 08/25/18 DATE OF DISCHARGE: 08/28/18 PRIMARY CARE PROVIDER: Dr. Avani Garcia. MY ATTENDING PHYSICIAN ON THIS ADMISSION: Dr. Fatemeh Keller.* (DICTATED BY ERUM SERRANO NP) HOSPITAL COURSE: Please refer to admitting H and P on 08/25/18, but in short, Mr. Gonzalez is a 68-year-old female patient who sustained a fall injury, which resulted in a hip fracture on the right. Initially, it was felt that this patient could have hemiarthroplasty; however, due to significant bone loss , it was felt that she would benefit from a total hip arthroplasty. She was evaluated by Dr. Dipika Pryor, who performed this procedure. She had an uneventful postoperative course. Medicine did cover the patient because the patient did have a history of coronary artery disease. She had stenting in the past. She had an echocardiogram with no changes and then EKG with no changes. She was continued on her home medications, her statin and aspirin. Her history of hypertension was stable on her Cardizem. She recovered very well from her surgery. She did have some episodes of postoperative delirium secondary to narcotics. We minimized her narcotic medications and she recovered very well. She participated with physical therapy. Laboratories remained stable and she was ready for discharge to home with outpatient physical therapy. DISCHARGE DIAGNOSES: 1. Mechanical fall with a hip fracture 2. History of coronary artery disease. 3. History of hypertension. DISCHARGE MEDICATIONS: Include: 1. Atorvastatin 40 mg daily. 2. Avapro 150 mg daily. 3. Cardizem 360 mg daily. 4. Vitamin D 1000 units daily. 5. Tramadol 50 mg q.6 hours as needed. 6. Tylenol 650 mg q.6 hours as needed. 7. Docusate 100 mg p.o. b.i.d. as needed. 8. Apixaban 2.5 mg p.o. b.i.d. REVIEW OF SYSTEMS ON THE DATE OF DISCHARGE: The patient denies any fever, fatigue, or chills. No chest pain, no shortness of breath. No abdominal pain, no nausea, vomiting. No urinary complaints. Hip pain is well controlled. No arthralgias or myalgias. No calf pain and no further constitutional complaints. PHYSICAL EXAMINATION: The patient is awake, alert, well appearing. No acute distress. Vital Signs: Blood pressure 127/62, heart rate 83, respiratory rate 16, O2 saturation 100% on room air with a temperature of 97.6. HEENT: The patient is atraumatic, normocephalic. PERRLA. Nonicteric sclerae. Oral mucosa is moist. Tongue is midline. Neck is supple. Nontender. No JVD noted. No carotid bruits auscultated. Cardiovascular: S1, S2 present. No murmurs, gallops, or rubs noted. Rate and rhythm are regular. Lungs are clear bilaterally to auscultation with no wheezing, rhonchi, or rales. Abdomen is soft, nontender, nondistended. Positive bowel sounds in all 4 quadrants. : Deferred. Musculoskeletal: There is no clubbing, no cyanosis. No edema. There is tenderness over the right hip. Dressing is clean, dry, and intact. No erythema noted around the surgical site. No drainage. She has +2 distal pulses palpable, distal to the surgical site. Full range of motion. She has some guarding to pain, but otherwise no other deformities noted. She has brisk cap refill. Neurologic: Grossly intact. Psychiatric: Cooperative and appropriate. LABORATORY DATA: WBCs 6.0, RBCs 3.62, hemoglobin 11.3, hematocrit 34, platelets 264. Sodium 135, potassium 4.1, chloride 104, CO2 of 26, BUN 13, creatinine 0.43, GFR 146.5, glucose 132. INR was 1.03. DISPOSITION: The patient was discharged to home in stable condition. All questions were answered. The patient stated understanding of her discharge instructions, medications, and followups. The patient was instructed to follow up with Dr. Dipika Pryor, her orthopedic surgeon, in 10 days for wound check and staple removal; Dr. Avani Garcia, her primary care provider; visiting nurse service for physical therapy as an outpatient. Again, the patient was discharged in stable condition. She was instructed to call Dr. Pryor if she had any questions about her surgical site, any further instructions regarding her wound, pain medications, physical therapy, or any orthopedic care should be directed to Dr. Pryor's office. TIME SPENT: Thirty-five minutes on discharge planning. ERUM SERRANO, HAIRSPRING CUTTER [id number]/[facility] #: [id number] [facility] H[facility]PITALAmara
== END 2018-08-28 13:30 | disposition home health service (06) | DRG 470 ==
LOC: ED 19:27 → SSU 21:34
PROVIDERS: ADMIT Internal Medicine; ATTEND Internal Medicine
PROC: 0SR901A Replacement of Right Hip Joint with Metal Synthetic Substitute, Uncemented, Open Approach (ICD-10-PCS; principal; 2018-08-26 17:00)
DX: S72.001A Fracture of unspecified part of neck of right femur, initial encounter for closed fracture (principal); W01.0XXA Fall on same level from slipping, tripping and stumbling without subsequent striking against object, initial encounter; I25.10 Atherosclerotic heart disease of native coronary artery without angina pectoris; E78.00 Pure hypercholesterolemia, unspecified; E78.5 Hyperlipidemia, unspecified; I10 Essential (primary) hypertension; M16.11 Unilateral primary osteoarthritis, right hip; M85.80 Other specified disorders of bone density and structure, unspecified site; Z96.651 Presence of right artificial knee joint; M25.461 Effusion, right knee; E89.0 Postprocedural hypothyroidism; Z95.5 Presence of coronary angioplasty implant and graft; Y92.008 Other place in unspecified non-institutional (private) residence as the place of occurrence of the external cause; Z72.89 Other problems related to lifestyle; Z88.5 Allergy status to narcotic agent; Z88.0 Allergy status to penicillin; Z88.8 Allergy status to other drugs, medicaments and biological substances; Z91.040 Latex allergy status; Z82.49 Family history of ischemic heart disease and other diseases of the circulatory system; Z80.1 Family history of malignant neoplasm of trachea, bronchus and lung
CPT/HCPCS: 36415; 71045; 80048; 80053; 84484; 85025; 85610; 86850; 86900; 86901; 88305; 88311; 93005; 99284; A9270-GY; C1713; C1776; G8978-GP-CJ; G8979-GP-CI; G8987-GO-CK; G8988-GO-CI; J1100; J1644; J1885; J2250; J2270; J2704; J3010; J3490